=== PATIENT | female | born 1970 | race African-American/Black ===

== ENCOUNTER 2023-09-16 13:32 | Emergency (ER) | payer OTHER, SELFPAY ==
[2023-09-16 13:51] VITALS: BP 135/71; PULSE 74; RESP 16; TEMP 36.2; O2SAT 100
[2023-09-16 15:31] VITALS: BP 149/86; PULSE 69; RESP 14; O2SAT 100
--- NOTE | 2023-09-16 15:57 | ED.GENADULT ---
HPI - General Adult General Chief complaint: Skin/Abscess/Foreign Body Stated complaint: i have a cyst on my alecia alecia Time Seen by Provider: 09/16/23 15:20 History of Present Illness HPI narrative: Patient is a 52-year-old female who presents to the emergency department this afternoon complaining of a cyst in her right labia. Patient denies any previous similar symptoms in the past denies any history of bartholian or abscess. patient denies any pain, denies any concern for STDs, no additional symptoms or concerns at this time. Related Data Allergies Allergy/AdvReac Type Severity Reaction Status Date / Time ibuprofen Allergy Unknown Unknown Verified 09/16/23 15:30 Review of Systems Review of Systems: All systems are reviewed and are negative unless stated otherwise in the HPI. Exam Narrative: General: Alert, awake, afebrile, in no acute distress. HEENT: PERRL, no rhinorrhea, no post nasal drip, oropharynx clear. Cardiovascular: Regular rate and rhythm, no murmurs, rubs or gallops, no peripheral edema. Respiratory: Clear to auscultation bilaterally, no tachypnea, no wheezing, no rhonchi, no rubs, no respiratory distress. Abdomen: Soft, nontender, nondistended, no rebound, no guarding, no peritoneal signs. Genitals: Exam preformed with the presence of female nurse homoeopath revealing a bartholian cyst in the 7 o'clock position. Musculoskeletal: No joint swelling or deformity, normal muscle tone. Skin: No rashes or petechia, no signs of infection. Neurological: Alert and oriented to person, place, and time. Follows all commands. No focal deficits, speech is clear and fluent. Course Vital Signs Vital signs: Vital Signs Temperature 97.2 F L 09/16/23 13:51 Pulse Rate 74 09/16/23 13:51 Respiratory Rate 16 09/16/23 13:51 Blood Pressure 135/71 09/16/23 13:51 Pulse Oximetry 100 09/16/23 13:51 Oxygen Delivery Room Air 09/16/23 13:51 Temperature 97.2 F L 09/16/23 13:51 Pulse Rate 69 09/16/23 15:31 Respiratory Rate 14 09/16/23 15:31 Blood Pressure 149/86 H 09/16/23 15:31 Pulse Oximetry 100 09/16/23 15:31 Oxygen Delivery Room Air 09/16/23 13:51 Procedures Abscess I/D other: Date of Incision: 09/16/23 Time of Incision: 16:00 Local Anesthetic: lidocaine 1% Amount of anesthesia used (mL): 2 Technique: incised with #11 blade Amount of fluid expressed (mL): 25 Packing used?: none I&D Results: Pus and Blood Medical Decision Making MDM Narrative Medical decision making narrative: The patient was evaluated by myself in the emergency department. History is obtained from patient who is an independent historian and physical exam was performed. External medical records were reviewed at this time. Abscess was drained as detailed under procedural note. Word catheter was attempted, however, will not stay in place. Differential diagnosis considerations include bartholian cyst or abscess and sexually transmitted disease. Comorbidities impacting this visit include none. I have evaluated and discussed social determinants of health with the patient that could potentially impact subsequent diagnosis and treatment plans. On repeat assessment of the patient, reevaluation revealed that the patient is doing well and is in no acute distress. Patient symptoms have improved since she arrived to our emergency department. Repeat vital signs were all reviewed and noted to be stable. Differential diagnosis and treatment plan were discussed with the patient at bedside. Patient agrees with discussion and after shared medical decision making agrees with discharge. All questions were answered to the patient's satisfaction. Patient will follow up with OBGYN with Dr. Bermudez in 3-5 days. Patient was provided with strict return precautions and instructed to return to the emergency department if any new or worsening symptoms develop. The patient was discharged
[2023-09-16 16:46] VITALS: BP 141/89; PULSE 68; RESP 15; TEMP 36.4; O2SAT 100
== END 2023-09-16 16:49 | disposition home or self-care (01) ==
LOC: ANHED 16:03
PROVIDERS: Emergency Provider Emergency Medicine
DX: N75.0 Cyst of Bartholin's gland (principal)
CPT/HCPCS: 56420; 99282